=== PATIENT | female | born 1960 | race Caucasian/White ===

== ENCOUNTER 2016-06-27 17:35 | Emergency (ER) | payer OTHER ==
[2016-06-27] MEDS ORDERED: NS 0.9% 1000 ML* 1,000 ML BOLUS ONE (17:39)
[2016-06-27] MEDS ORDERED: Ondansetron INJ* 2 MG/ML VIAL IV ONE (17:39)
[2016-06-27] MEDS ORDERED: LORazepam INJ* 2 MG/ML 1 ML VIAL IV PUSH ONE ×2 (18:31→19:09)
--- NOTE | 2016-06-27 18:36 | UC ---
Dizzy HPI HPI Summary: 55 YO FEMALE BECAME TREMULOUS/DIZZY AND HAD NAUSEA AND VOMITING WHILE HERE WITH ANOTHER PATIENT HAS HAD SIMILAR SPELLS IN PAST WAS NOTED ON FLOOR VOMITING NO CP OR SOB TREMORS - History Of Current Complaint Chief Complaint: UCGeneralIllness Stated Complaint: VOMITING Time Seen by Provider: 06/27/16 17:37 Onset/Duration: Sudden Onset, Lasting Minutes Timing: Constant Severity Initially: Moderate Severity Currently: Moderate Pain Intensity: 0 Pain Scale Used: 0-10 Numeric Character: Lightheaded, Weak, Dizzy Aggravating Factor(s): Nothing Alleviating Factor(s): Lying Down Associated Signs And Symptoms: Positive: Nausea Related History: Similar Episode/Dx as - VERTIGO - Allergies/Home Medications Allergies/Adverse Reactions: Allergies Allergy/AdvReac Type Severity Reaction Status Date / Time Azithromycin [From Zithromax] AdvReac Mild Nausea Verified 06/27/16 18:12 Tramadol AdvReac Nausea And Verified 06/27/16 18:12 Vomiting Home Medications: Home Medications NK [No Home Medications Reported] 06/27/16 [History Confirmed 06/27/16] PMH/Surg Hx/FS Hx/Imm Hx Previously Healthy: Yes Endocrine History Of: Denies: Diabetes, Thyroid Disease Cardiovascular History Of: Denies: Cardiac Disorders, Hypertension, Pacemaker/ICD Respiratory History Of: Denies: COPD, Asthma GI/ History Of: Denies: Ulcer Psychological History Of: Reports: Anxiety Cancer History Of: Denies: Breast Cancer - Surgical History Surgical History: Yes Surgery Procedure, Year, and Place: HYSTERECTOMY - Family History Known Family History: Negative: Cardiac Disease, Hypertension, Diabetes - Social History Alcohol Use: Occasionally Substance Use Type: None Smoking Status (MU): Never Smoked Tobacco - Immunization History Most Recent Influenza Vaccination: 2014 Review of Systems Constitutional: Fatigue Skin: Negative Eyes: Negative ENT: Negative Respiratory: Negative Cardiovascular: Negative Gastrointestinal: Vomiting Genitourinary: Negative Motor: Weakness Neurovascular: Negative Musculoskeletal: Negative Neurological: Negative Psychological: Negative All Other Systems Reviewed And Are Negative: Yes Physical Exam Triage Information Reviewed: Yes Appearance: Well-Appearing, No Pain Distress, Well-Nourished Vital Signs: Initial Vital Signs Pulse 78 06/27/16 18:06 Resp 20 06/27/16 18:06 BP 170/94 06/27/16 18:06 Pulse Ox 100 06/27/16 18:06 Eye Exam: Normal ENT: Positive: Normal ENT inspection, Hearing grossly normal, Pharynx normal Neck exam: Normal Neck: Positive: Supple, Nontender, No Lymphadenopathy, Other: - NO BRUIT Respiratory: Positive: Lungs clear, Normal breath sounds, No respiratory distress, No accessory muscle use Cardiovascular: Positive: RRR, No Murmur, Pulses Normal Abdomen Description: Positive: Nontender, No Organomegaly, Soft Bowel Sounds: Positive: Present Musculoskeletal: Positive: ROM Intact, No Edema Neurological: Positive: Alert, Other: - NON FOCAL Psychological Exam: Normal Skin Exam: Normal Re-Evaluation - Re-Evaluation First Eval Re-Evaluation Time: 19:41 Change: Improved Comment: feels good enough to go home Dizzy Course/Dx - Differential Dx/Diagnosis Provider Diagnoses: dizziness non specific. vomiting Discharge - Discharge Plan Condition: Stable Disposition: HOME Patient Education Materials: Dizziness (ED) Referrals: Alberto Castle MD [Primary Care Provider] - 1 Day (if not better)
[2016-06-27] MEDS ORDERED: Ondansetron ODT TAB* 4 MG PO ONE (19:11)
[2016-06-27 20:10] VITALS: BP 130/71
== END 2016-06-27 20:00 | disposition home or self-care (01) ==
LOC: UCEAST 17:35
DX: R42 Dizziness and giddiness (principal); R11.10 Vomiting, unspecified; Z88.1 Allergy status to other antibiotic agents; Z88.5 Allergy status to narcotic agent
CPT/HCPCS: 96360; 96361; 96374; 96375; 96376; 99212; 99213; A9270-GY; G0463; J2060; J2405

== ENCOUNTER 2016-10-06 05:27 | Emergency (ER) | payer OTHER ==
[2016-10-06] MEDS ORDERED: Aspirin Low Dose CHEW TAB* 81 MG PO ONE (05:48)
--- NOTE | 2016-10-06 05:54 | ED ---
Marvel Boudreaux Billy, scribed for Fidel Valentin MD on 10/06/16 at 0546 . HPI Chest Pain - HPI Summary HPI Summary: Patient is a 55 year-old female coming to [facility] for evaluation of left anterior chest pain radiating to the left arm. The pain has been intermittent since earlier this week. Her episode today started at 2300 last night, but she took an aspirin and fell asleep. She then woke up at 0430 with the pain. She is unable to describe the pain very well, and is only to describe it as "a discomfort." Pain severity 5/10. Nothing makes it better or worse. - History of Current Complaint Chief Complaint: EDChestPainROMI Time Seen by Provider: 10/06/16 05:39 Hx Obtained From: Patient Onset/Duration: Started Hours Ago Timing: Intermittent Initial Severity: Moderate Current Severity: Moderate Pain Intensity: 5 Pain Scale Used: 0-10 Numeric Chest Pain Location: Left Anterior Chest Pain Radiates: Yes Chest Pain Radiates To:: Arm Aggravating Factor(s): Nothing Alleviating Factor(s): Nothing Associated Signs and Symptoms: Positive: Chest Pain - Allergy/Home Medications Allergies/Adverse Reactions: Allergies Allergy/AdvReac Type Severity Reaction Status Date / Time Azithromycin [From Zithromax] AdvReac Mild Nausea Verified 10/06/16 05:34 Tramadol AdvReac Nausea And Verified 10/06/16 05:34 Vomiting PMH/Surg Hx/FS Hx/Imm Hx Endocrine/Hematology History: Denies: Hx Diabetes, Hx Thyroid Disease Cardiovascular History: Denies: Hx Hypertension, Hx Pacemaker/ICD Respiratory History: Denies: Hx Asthma, Hx Chronic Obstructive Pulmonary Disease (COPD) GI History: Denies: Hx Ulcer Sensory History: Denies: Hx Hearing Aid Neurological History: Reports: Other Neuro Impairments/Disorders - PT HAS PREVIOUSLY INJURED LOW BACK Psychiatric History: Reports: Hx Anxiety Denies: Hx Panic Disorder - Cancer History Hx Chemotherapy: No Hx Radiation Therapy: No - Surgical History Surgery Procedure, Year, and Place: HYSTERECTOMY Infectious Disease History: No Infectious Disease History: Reports: Hx Shingles, History Other Infectious Disease - cold sores Denies: Hx Hepatitis, Hx Human Immunodeficiency Virus (HIV), Hx of Known/ Suspected MRSA, Hx Tuberculosis, Hx Known/Suspected VRE, Hx Known/Suspected VRSA , Traveled Outside the [place] in Last 30 Days - Family History Known Family History: Negative: Cardiac Disease, Hypertension, Diabetes - Social History Alcohol Use: Occasionally Hx Substance Use: No Substance Use Type: Reports: None Hx Tobacco Use: No Smoking Status (MU): Never Smoked Tobacco Review of Systems Negative: Fever Positive: Chest Pain All Other Systems Reviewed And Are Negative: Yes Physical Exam Triage Information Reviewed: Yes Vital Signs On Initial Exam: Initial Vitals Temp Pulse Resp BP Pulse Ox 98.2 F 75 14 141/73 100 10/06/16 05:31 10/06/16 05:31 10/06/16 05:31 10/06/16 05:31 10/06/16 05:31 Vital Signs Reviewed: Yes Appearance: Positive: Well-Appearing, Pain Distress - mild discomfort Skin: Positive: Warm Head/Face: Positive: Normal Head/Face Inspection Eyes: Positive: ALANA ENT: Positive: Hearing grossly normal Neck: Positive: Supple Respiratory/Lung Sounds: Positive: Clear to Auscultation, Breath Sounds Present Cardiovascular: Positive: RRR Abdomen Description: Positive: No Organomegaly Bowel Sounds: Positive: Present Musculoskeletal: Positive: Strength/ROM Intact Neurological: Positive: Sensory/Motor Intact, Alert, Oriented to Person Place, Time Psychiatric: Positive: Affect/Mood Appropriate Diagnostics - Vital Signs Vital Signs Temp Pulse Resp BP Pulse Ox 10/06/16 05:39 19 10/06/16 05:31 98.2 F 75 14 141/73 100 - Laboratory Result Diagrams: 10/06/16 05:50 10/06/16 06:20 Lab Statement: Any lab studies that have been ordered have been reviewed, and results considered in the medical decision making process. - Radiology CXR Radiology Interpretation Completed By: Radiologist - See EMR* - EKG 0536 EKG Interpretation: NSR 72 bpm, no STEMI Chest Pain Course/Dx - Diagnoses Provider Diagnoses: Chest pain Discharge - Discharge Plan Condition: Stable Disposition: HOME Discharge Disposition Comment: Patient will be signed out to Dr. Murphy pending lab results. Patient Education Materials: Chest Pain (ED) Referrals: Alberto Castle MD [Primary Care Provider] - Additional Instructions: CALL YOUR DOCTOR TOMORROW FOR FOLLOW UP. RETURN TO THE EMERGENCY DEPARTMENT FOR ANY WORSENING OF YOUR CONDITION; CHEST PAIN, SHORTNESS OF BREATH, YOU FEEL ILL OR QUESTIONS OR CONCERNS. The documentation as recorded by the Marvel patton Billy accurately reflects the service I personally performed and the decisions made by me, Fidel Valentin MD.
[2016-10-06 06:09] LABS: ALT 60 U/L (7-52); Albumin 4.3 g/dL (3.2-5.2); Alkaline Phosphatase 90 U/L (34-104); BUN/Creatinine Ratio 35.5 (8-20); Blood Urea Nitrogen 27 mg/dL (6-24); CO2 Carbon Dioxide 23 mmol/L (22-32); Calcium 9.6 mg/dL (8.6-10.3); Chloride 102 mmol/L (101-111); EGFR African American 100.9 (>60); EGFR Non-African American 78.4 (>60); Globulin 3.5 g/dL (2-4); Glucose 93 mg/dL (70-100); Sodium 133 mmol/L (133-145); Total Protein 7.8 g/dL (6.4-8.9)
[2016-10-06 06:12] LABS: Hematocrit 39 % (35-47); Hemoglobin 12.7 g/dl (12.0-16.0); Mean Corpuscular HGB Conc 33 g/dl (31-36); Mean Corpuscular Hemoglobin 27 pg (27-31); Mean Corpuscular Volume 83 fL (80-97); Mean Platelet Volume 8 um3 (7.4-10.4); Red Blood Count 4.72 10^6/ul (4.0-5.4); Red Cell Distribution Width 13 % (10.5-15); White Blood Count 5.4 10^3/ul (3.5-10.8)
--- NOTE | 2016-10-06 07:16 | RAD ---
INDICATION: Chest pain. COMPARISON: Comparison is made with a prior chest x-ray study from February 18, 2010. TECHNIQUE: Dual-energy PA and lateral views of the chest were obtained. FINDINGS: The heart is within normal limits in size. Mediastinal and hilar contours appear within normal limits. The lungs are clear. No pleural effusion is present. There is a mild dorsal scoliosis convex toward the right side. IMPRESSION: NO EVIDENCE FOR ACTIVE CARDIOPULMONARY DISEASE.
[2016-10-06] MEDS ORDERED: Al Hydrox/Mg Hydrox/Simet LIQ* 30 ML UDC PO ONE (08:52)
[2016-10-06] MEDS ORDERED: Lidocaine 2% VISCOUS* 15 ML UDC PO ONE (08:52)
[2016-10-06 10:51] VITALS: BP 128/70
--- NOTE | 2016-10-06 11:13 | ED ---
Natividad Boudreaux Janilya, scribed for Rodney Murphy MD on 10/06/16 at 0847 . Progress - Progress Note Progress Note: Pt signed out from Dr. Valentin on shift change pending 2nd and 3rd troponin levels. Pt states that she woke up at 2330 last night w/ an onset of CP. She took aspiring and went back to sleep. Pt woke up again at 0400 this morning. The pain was more intense than last night. Pt still has some pain in the chest, described as "discomfort, but not sharp pain". In addition, she reports pain and heaviness of left arm. She states she cannot move left arm. No PMHx of cardiac problems. FHx cardiac problems - parents, DM. Physical Exam Triage Information Reviewed: Yes Vital Signs On Initial Exam: Initial Vitals Temp Pulse Resp BP Pulse Ox 98.2 F 75 14 141/73 100 10/06/16 05:31 10/06/16 05:31 10/06/16 05:31 10/06/16 05:31 10/06/16 05:31 Vital Signs Reviewed: Yes Appearance: Positive: Well-Appearing, No Pain Distress Skin: Positive: Warm, Skin Color Reflects Adequate Perfusion, Dry Head/Face: Positive: Normal Head/Face Inspection Eyes: Positive: EOMI, ALANA ENT: Positive: Normal ENT inspection Neck: Positive: Supple, Nontender Respiratory/Lung Sounds: Positive: Clear to Auscultation, Breath Sounds Present Cardiovascular: Positive: RRR Abdomen Description: Positive: Nontender, Soft Bowel Sounds: Positive: Present Musculoskeletal: Positive: Normal, Strength/ROM Intact, Other - chest tenderness on palpation Neurological: Positive: Normal, Sensory/Motor Intact, Alert, Oriented to Person Place, Time Psychiatric: Positive: Affect/Mood Appropriate Re-Evaluation - Re-Evaluation First Eval Re-Evaluation Time: 10:40 Change: Improved Comment: Discussed 2nd trop levels of 0.00 Second Eval Re-Evaluation Time: 11:06 Change: Improved Comment: Discussed second EKG and D-dimer levels. Course/Dx - Course Course Of Treatment: Pt signed out from Dr. Valentin on shift change pending repeat troponin. Pt states that she woke up at 2330 last night w/ an onset of CP. She took aspiring and went back to sleep. Pt woke up again at 0400 this morning. The pain was more intense than last night. Pt still has some pain in the chest, described as "discomfort, but not sharp pain". In addition, she reports pain and heaviness of left arm. She states she could not move left arm. No PMHx of cardiac problems. FHx cardiac problems - parents, DM. 2nd troponin is at 0.00. D-dimer is <200. Second EKG is NSR at [address] no ectopy. DISCUSSED RESULTS WITH PATIENT. PATIENT REPORTS THE GI COCKTAIL HELPED WITH THE PAIN. THE LOWER STERNUM IS ALSO MILDLY TENDER TO PALPATION ON EXAM. DISCUSSED ADMISSION WITH THE PATIENT. SHE DECLINED, SHE WISHES TO GO HOME AND FOLLOW UP WITH HER DOCTOR. SHE STATED SHE WOULD RETURN TO THE EMERGENCY DEPARTMENT FOR ANY CHEST PAIN, WORSENING OF HER CONDITION OR ANY CONCERNS. DISCHARGE HOME STABLE. - Diagnoses Provider Diagnoses: Chest pain Diagnostics - Vital Signs Vital Signs Temp Pulse Resp BP Pulse Ox 10/06/16 10:30 79 21 128/70 97 10/06/16 10:00 72 19 122/73 99 10/06/16 09:30 75 23 126/73 97 10/06/16 09:00 82 21 141/75 99 10/06/16 08:30 75 23 133/69 99 10/06/16 08:04 83 19 140/75 98 10/06/16 07:30 76 16 134/72 99 10/06/16 07:00 72 16 130/63 98 10/06/16 06:30 67 12 132/85 99 10/06/16 06:20 137/87 10/06/16 06:19 64 15 99 10/06/16 05:39 19 10/06/16 05:31 98.2 F 75 14 141/73 100 - Laboratory Lab Results: Lab Results 10/06/16 10/06/16 10/06/16 Range/Units 05:45 05:50 05:50 WBC (3.5-10.8) 10^3/ul RBC (4.0-5.4) 10^6/ul Hgb (12.0-16.0) g/dl Hct (35-47) % MCV (80-97) fL MCH (27-31) pg MCHC (31-36) g/dl RDW (10.5-15) % Plt Count (150-450) 10^3/ul MPV (7.4-10.4) um3 Neut % (Auto) (38-83) % Lymph % (Auto) (25-47) % [place] % (Auto) (1-9) % Eos % (Auto) (0-6) % Baso % (Auto) (0-2) % Absolute Neuts (auto) (1.5-7.7) 10^3/ul Absolute Lymphs (auto) (1.0-4.8) 10^3/ul Absolute Monos (auto) (0-0.8) 10^3/ul Absolute Eos (auto) (0-0.6) 10^3/ul Absolute Basos (auto) (0-0.2) 10^3/ul Absolute Nucleated RBC 10^3/ul Nucleated RBC % INR (Anticoag Therapy) 0.86 L (0.89-1.11) D-Dimer, Quantitative < 200 (Less Than 230) ng/mL Sodium 133 (133-145) mmol/L Potassium TNP Chloride 102 (101-111) mmol/L Carbon Dioxide 23 (22-32) mmol/L Anion Gap TNP BUN 27 H (6-24) mg/dL Creatinine 0.76 (0.51-0.95) mg/dL Est GFR ( Amer) 100.9 (>60) Est GFR (Non-Af Amer) 78.4 (>60) BUN/Creatinine Ratio 35.5 H (8-20) Glucose 93 (70-100) mg/dL Lactic Acid 1.4 (0.5-2.0) mmol/L Calcium 9.6 (8.6-10.3) mg/dL Magnesium TNP Total Bilirubin 0.60 (0.2-1.0) mg/dL AST TNP ALT 60 H (7-52) U/L Alkaline Phosphatase 90 (34-104) U/L Troponin I 0.00 (<0.04) ng/mL Total Protein 7.8 (6.4-8.9) g/dL Albumin 4.3 (3.2-5.2) g/dL Globulin 3.5 (2-4) g/dL Albumin/Globulin Ratio 1.2 (1-3) 10/06/16 10/06/16 10/06/16 Range/Units 05:50 06:20 08:47 WBC 5.4 (3.5-10.8) 10^3/ul RBC 4.72 (4.0-5.4) 10^6/ul Hgb 12.7 (12.0-16.0) g/dl Hct 39 (35-47) % MCV 83 (80-97) fL MCH 27 (27-31) pg MCHC 33 (31-36) g/dl RDW 13 (10.5-15) % Plt Count 256 (150-450) 10^3/ul MPV 8 (7.4-10.4) um3 Neut % (Auto) 54.1 (38-83) % Lymph % (Auto) 34.5 (25-47) % [place] % (Auto) 7.2 (1-9) % Eos % (Auto) 3.9 (0-6) % Baso % (Auto) 0.3 (0-2) % Absolute Neuts (auto) 2.9 (1.5-7.7) 10^3/ul Absolute Lymphs (auto) 1.9 (1.0-4.8) 10^3/ul Absolute Monos (auto) 0.4 (0-0.8) 10^3/ul Absolute Eos (auto) 0.2 (0-0.6) 10^3/ul Absolute Basos (auto) 0 (0-0.2) 10^3/ul Absolute Nucleated RBC 0 10^3/ul Nucleated RBC % 0.1 INR (Anticoag Therapy) (0.89-1.11) D-Dimer, Quantitative (Less Than 230) ng/mL Sodium (133-145) mmol/L Potassium 3.9 Chloride (101-111) mmol/L Carbon Dioxide (22-32) mmol/L Anion Gap BUN (6-24) mg/dL Creatinine (0.51-0.95) mg/dL Est GFR ( Amer) (>60) Est GFR (Non-Af Amer) (>60) BUN/Creatinine Ratio (8-20) Glucose (70-100) mg/dL Lactic Acid (0.5-2.0) mmol/L Calcium (8.6-10.3) mg/dL Magnesium 2.0 Total Bilirubin (0.2-1.0) mg/dL AST 32 ALT (7-52) U/L Alkaline Phosphatase (34-104) U/L Troponin I 0.00 (<0.04) ng/mL Total Protein (6.4-8.9) g/dL Albumin (3.2-5.2) g/dL Globulin (2-4) g/dL Albumin/Globulin Ratio (1-3) Result Diagrams: 10/06/16 05:50 10/06/16 06:20 Lab Statement: Any lab studies that have been ordered have been reviewed, and results considered in the medical decision making process. - Radiology CXR Radiology Interpretation Completed By: Radiologist - See EMR* - EKG 0536 EKG Interpretation: NSR 72 bpm, no STEMI 1043 Cardiac Rate: NL - 67 bpm EKG Rhythm: Sinus Rhythm ST Segment: Normal Ectopy: None The documentation as recorded by the Natividad patton Janilya accurately reflects the service I personally performed and the decisions made by me, Rodney Murphy MD.
== END 2016-10-06 11:43 | disposition home or self-care (01) ==
LOC: ED 05:27
DX: R07.9 Chest pain, unspecified (principal)
CPT/HCPCS: 36415; 71020; 80053; 83605; 83735; 84484; 85025; 85379; 85610; 93005; 99283; A9270-GY

== ENCOUNTER 2017-05-12 11:23 | Emergency (ER) | payer OTHER ==
[2017-05-12 11:33] VITALS: BP 127/87
== END 2017-05-12 12:26 | disposition left against medical advice (07) ==
LOC: ED 11:23
DX: R11.10 Vomiting, unspecified (principal); Z53.21 Procedure and treatment not carried out due to patient leaving prior to being seen by health care provider
CPT/HCPCS: 99282

== ENCOUNTER 2017-05-12 17:52 | Emergency (ER) | payer OTHER ==
[2017-05-12] MEDS ORDERED: NS 0.9% 1000 ML* 1,000 ML IV ONE ×2 (19:19→20:49)
[2017-05-12] MEDS ORDERED: Ondansetron INJ* 2 MG/ML VIAL IV ONE ×2 (19:20→20:50)
[2017-05-12 21:56] VITALS: BP 110/58
[2017-05-12] MEDS ORDERED: Ondansetron ODT TAB* 4 MG PO ONE (22:06)
--- NOTE | 2017-05-12 22:10 | UC ---
Jamey Boudreaux Nilda, scribed for Rodney Murphy MD on 05/12/17 at 1921 . Abdominal Pain Female HPI - HPI Summary HPI Summary: This patient is a 56 year old F presenting to [facility] [place] with a chief complaint of constant nausea since waking up this morning. Symptoms aggravated by food intake. 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 Patient reports intermittent sharp diffuse abd pain (8/10 in severity initially ; no pain currently), chills (resolved), body aches, vomiting, diarrhea, and bilat LE weakness. Patient denies fever, sore throat, and ear pain. Pt notes she 's prone to nausea. She states she has Hx of vertigo and notes her symptoms do not feel like they're from vertigo. PSHx partial hysterectomy. - History of Current Complaint Chief Complaint: UCGeneralIllness Stated Complaint: VOMITING Time Seen by Provider: 05/12/17 19:10 Hx Obtained From: Patient Onset/Duration: Sudden Onset, Lasting Hours, Still Present Timing: Constant Severity Initially: Severe Severity Currently: None Pain Intensity: 8 Pain Scale Used: 0-10 Numeric Location: Diffuse Radiates: No Character: Sharp Aggravating Factor(s): Food Alleviating Factor(s): Nothing Associated Signs and Symptoms: Positive: Other: - nausea, intermittent sharp diffuse abd pain (8/10 in severity initially; no pain currently), chills ( resolved), body aches, vomiting, diarrhea, and bilat LE weakness. Patient denies fever, sore throat, and ear pain. Allergies/Adverse Reactions: Allergies Allergy/AdvReac Type Severity Reaction Status Date / Time Azithromycin [From Zithromax] AdvReac Mild Nausea Verified 05/12/17 18:21 Tramadol AdvReac Nausea And Verified 05/12/17 18:21 Vomiting PMH/Surg Hx/FS Hx/Imm Hx Previously Healthy: No Cardiovascular History: Hypertension Psychological History: Anxiety - Surgical History Surgical History: Yes Surgery Procedure, Year, and Place: HYSTERECTOMY - Family History Known Family History: Negative: Cardiac Disease, Hypertension, Diabetes - Social History Alcohol Use: Occasionally Substance Use Type: None Smoking Status (MU): Never Smoked Tobacco - Immunization History Most Recent Influenza Vaccination: 2014 Review of Systems Constitutional: Chills - resolved, Other - negative fever ENT: Other - negative ear pain, sore throat Gastrointestinal: Abdominal Pain, Vomiting, Diarrhea, Nausea Musculoskeletal: Other: - body aches, LE weakness All Other Systems Reviewed And Are Negative: Yes Physical Exam Triage Information Reviewed: Yes Vital Signs: Initial Vital Signs Temp 98 F 05/12/17 18:21 Pulse 95 05/12/17 18:21 Resp 18 05/12/17 18:21 BP 131/71 05/12/17 18:21 Pulse Ox 100 05/12/17 18:21 Vital Signs Reviewed: Yes - Additional Comments General: well-appearing, no pain distress Skin: warm, color reflects adequate perfusion, dry Head: normal Eyes: EOMI, ALANA ENT: Dry oral mucosa Neck: supple, nontender Respiratory: CTA, breath sounds present Cardiovascular: RRR Abdomen: soft, nontender Bowel sounds: hypoactive Musculoskeletal: normal, strength/ROM intact Neurological: normal, sensory/motor intact, A&O x3 Psychological: affect/mood appropriate Abd Pain Female Course/Dx - Course Course Of Treatment: BP noted and advised to follow up with PCP. Allergies noted. Medications reviewed. IMPROVED IN CLINIC AFTER IVF AND ZOFRAN. DISCUSSED IF SHE WORSENS TO GO TO THE ED. - Differential Dx/Diagnosis Provider Diagnoses: NAUSEA, VOMITING, DIARRHEA AND DEHYDRATION. uncontrolled hypertension Discharge - Discharge Plan Condition: Stable Disposition: HOME Patient Education Materials: Dehydration (ED), Acute Nausea and Vomiting (ED), Acute Diarrhea (ED) Referrals: Alberto Castle MD [Primary Care Provider] - Additional Instructions: FOLLOW UP WITH YOUR DOCTOR. GO TO THE EMERGENCY DEPARTMENT FOR ANY WORSENING OF YOUR CONDITION; ABDOMINAL PAIN, DEHYDRATION, YOU FEEL ILL, YOU FEEL LIKE PASSING OUT OR QUESTIONS OR CONCERNS. Your blood pressure was elevated during todays visit; please follow up with your primary care provider within a week for further evaluation. The documentation as recorded by the Jamey patton Nilda accurately reflects the service I personally performed and the decisions made by me, Rodney Murphy MD.
== END 2017-05-12 22:24 | disposition home or self-care (01) ==
LOC: UCEAST 17:52
DX: R11.2 Nausea with vomiting, unspecified (principal); R19.7 Diarrhea, unspecified; E86.0 Dehydration; I10 Essential (primary) hypertension
CPT/HCPCS: 81003; 87086; 87502; 96360; 96361; 96374; 96376; 99213; A9270-GY; G0463; J2405

== ENCOUNTER 2017-06-07 17:17 | Emergency (ER) | payer OTHER ==
[2017-06-07 17:51] VITALS: BP 145/75
[2017-06-07] MEDS ORDERED: Ibuprofen TAB* 600 MG PO ONE (18:16)
--- NOTE | 2017-06-07 19:29 | UC ---
Jamey Boudreaux Nilda, scribed for Rodney Murphy MD on 06/07/17 at 1822 . Throat Pain/Nasal Zeferino HPI - HPI Summary HPI Summary: This patient is a 56 year old F presenting to [facility] [place] with a chief complaint of constant sore throat since 0200 this morning. The patient rates the pain 6/10 in severity. 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 Patient reports swollen tonsils, difficulty swallowing, chills, fatigue, body aches (this morning but resolved), and left ear pain. Patient denies fever. 2-3 weeks ago, grandson had strep throat. Pt denies daily medications. - History of Current Complaint Chief Complaint: UCRespiratory Stated Complaint: SORE THROAT, HEADACHE Time Seen by Provider: 06/07/17 18:10 Hx Obtained From: Patient Onset/Duration: Sudden Onset, Lasting Hours, Still Present Severity: Moderate Pain Intensity: 6 Pain Scale Used: 0-10 Numeric Associated Signs & Symptoms: Positive: Other - difficulty swallowing, swollen tonsils, difficulty swallowing, chills, fatigue, body aches (this morning but resolved), and left ear pain. Patient denies fever. - Allergies/Home Medications Allergies/Adverse Reactions: Allergies Allergy/AdvReac Type Severity Reaction Status Date / Time Azithromycin [From Zithromax] AdvReac Mild Nausea Verified 06/07/17 17:51 Tramadol AdvReac Nausea And Verified 06/07/17 17:51 Vomiting PMH/Surg Hx/FS Hx/Imm Hx Cardiovascular History: Hypertension - Surgical History Surgical History: Yes Surgery Procedure, Year, and Place: HYSTERECTOMY - Family History Known Family History: Negative: Cardiac Disease, Hypertension, Diabetes - Social History Alcohol Use: Occasionally Substance Use Type: None Smoking Status (MU): Never Smoked Tobacco - Immunization History Most Recent Influenza Vaccination: 2017 Review of Systems Constitutional: Chills, Fatigue, Other - negative fever ENT: Sore Throat, Ear Ache - left, Other - swollen tonsils, difficulty swallowing Musculoskeletal: Other: - body aches (this morning, now resolved) All Other Systems Reviewed And Are Negative: Yes Physical Exam Triage Information Reviewed: Yes Vital Signs: Initial Vital Signs Temp 98.5 F 06/07/17 17:47 Pulse 82 06/07/17 17:47 Resp 14 06/07/17 17:47 BP 145/75 06/07/17 17:47 Pulse Ox 98 06/07/17 17:47 Vital Signs Reviewed: Yes - Additional Comments General: mildly ill-appearing, no pain distress Skin: warm, color reflects adequate perfusion, dry Head: normal Eyes: EOMI, ALANA ENT: normal TMs, Posterior pharynx erythematous Neck: supple, nontender, + anterior cervical adenopathy Respiratory: CTA, breath sounds present Cardiovascular: RRR Abdomen: soft, nontender Bowel: present Musculoskeletal: normal, strength/ROM intact Neurological: normal, Psychological: affect/mood appropriate Throat Pain/Nasal Course/Dx - Course Assessment/Plan: Allergies noted. Medications reviewed. BP noted and advised to follow up with PCP. - Differential Dx/Diagnosis Provider Diagnoses: PHARYNGITIS. uncontrolled hypertension Discharge - Discharge Plan Condition: Stable Disposition: HOME Patient Education Materials: Pharyngitis (ED) Referrals: Alberto Castle MD [Primary Care Provider] - Additional Instructions: FOLLOW UP WITH YOUR DOCTOR. GET RECHECKED FOR ANY WORSENING OF YOUR CONDITION OR QUESTIONS OR CONCERNS. Your blood pressure was elevated during todays visit; please follow up with your primary care provider within a week for further evaluation. The documentation as recorded by the Jamey patton Nilda accurately reflects the service I personally performed and the decisions made by me, Rodney Murphy MD.
== END 2017-06-07 19:00 | disposition home or self-care (01) ==
LOC: UCEAST 17:17
DX: J02.9 Acute pharyngitis, unspecified (principal); I10 Essential (primary) hypertension; R51 Headache; Z88.1 Allergy status to other antibiotic agents; Z88.5 Allergy status to narcotic agent
CPT/HCPCS: 87651; 99211; A9270-GY; G0463

== ENCOUNTER 2019-02-20 07:02 | Emergency (ER) | payer OTHER ==
[2019-02-20 07:19] VITALS: BP 132/72
--- NOTE | 2019-02-20 07:40 | UC ---
Complaint Female HPI - HPI Summary HPI Summary: Patient is a 58-year-old female here with constipation. Patient's had 2 weeks of symptoms. Patient initially had suprapubic pain and lower back pain. Patient saw her urologist to be valid for UTI with a negative urine. Patient's had constipation over the past 2 weeks that is progressively worse. Patient's last bowel movement was 2 days ago. Patient doing MiraLAX once a day for that. Patient never had surgery at site of a partial hysterectomy but has no abdominal wall scars. Patient is able to pass gas. Patient has no fever, chills, nausea, vomiting, dysuria, hematuria, vaginal bleeding, vaginal discharge, weight loss. Patient's last colonoscopy was 5 years ago. Patient's father of colon cancer. Medications reviewed - History Of Current Complaint Chief Complaint: UCAbdominalPain Stated Complaint: CONSTIPATION Time Seen by Provider: 02/20/19 07:10 Pain Intensity: 6 - Allergies/Home Medications Allergies/Adverse Reactions: Allergies Allergy/AdvReac Type Severity Reaction Status Date / Time azithromycin AdvReac Mild Nausea Verified 02/20/19 07:19 tramadol AdvReac Nausea Verified 02/20/19 07:19 Home Medications: Home Medications Polyethylene Glycol 3350* [Miralax*] 17 gm PO DAILY 02/20/19 [History Confirmed 02/20/19] PMH/Surg Hx/FS Hx/Imm Hx Previously Healthy: Yes - Surgical History Surgical History: Yes Surgery Procedure, Year, and Place: HYSTERECTOMY - partial - Family History Known Family History: Negative: Cardiac Disease, Hypertension, Diabetes - Social History Alcohol Use: Weekly Substance Use Type: None Smoking Status (MU): Never Smoked Tobacco - Immunization History Most Recent Influenza Vaccination: 2017 Review of Systems All Other Systems Reviewed And Are Negative: Yes Constitutional: Positive: Chills. Negative: Fever ENT: Negative: Sore Throat, Nasal Discharge Respiratory: Negative: Shortness Of Breath, Cough Cardiovascular: Negative: Chest Pain Gastrointestinal: Negative: Vomiting, Diarrhea Genitourinary: Negative: Dysuria, Hematuria, Frequency Physical Exam - Summary Physical Exam Summary: Vital Signs Reviewed: Yes A+Ox3, no distress Eyes: Conjunctiva Clear, PERRL. EOM intact and full ENT: Hearing grossly normal TM x 2 clear, moist, uvula midline, no exudate, no erythema Neck: Positive: Supple Respiratory: Positive: No respiratory distress, No accessory muscle use + CTA throughout no w/r Cardiovascular: RRR nl s1, s2 no m/r CBT <2 sec abd soft + BS. Tenderness over the suprapubic region. no guarding, no distension Musculoskeletal Exam: STROUD x 4 without difficulty Strength Intact, ROM Intact Neurological: Positive: Alert, + sensation throughout Psychological: Positive: Normal Response To Family Skin: no rash, no ecchymosis Vital Signs: Initial Vital Signs Temp 98.8 F 02/20/19 07:13 Pulse 71 02/20/19 07:13 Resp 16 02/20/19 07:13 BP 132/72 02/20/19 07:13 Pulse Ox 99 02/20/19 07:13 Complaint Female Dx - Course Course Of Treatment: Patient is here with constipation that has progressively gotten worse. Patient had a negative UA here for hematuria or evidence of infection. Patient had an overall benign exam. Patient had her MiraLAX increased to twice a day and was educated on home enemas. Patient was given GI follow-up. Patient did not need any emergent imaging per my clinical evaluation but does need to be followed up to make sure patient does not have colon cancer or any underlying pathology causing her constipation. - Differential Dx/Diagnosis Provider Diagnosis: Constipation, Suprapubic pain, Low back pain Discharge ED - Sign-Out/Discharge Documenting (check all that apply): Patient Departure All imaging exams completed and their final reports reviewed: No Studies - Discharge Plan Condition: Stable Disposition: HOME Patient Education Materials: Constipation (ED) Referrals: Alberto Castle MD [Primary Care Provider] - Efren Cazares MD [Medical Doctor] - Additional Instructions: Please start using her MiraLAX twice a day Please go to the grocery store and buy a home enema kit Please go to the emergency department if her symptoms are worsening You need to follow-up for colonoscopy as you might have colon cancer - Billing Disposition and Condition Condition: STABLE Disposition: Home
== END 2019-02-20 08:00 | disposition home or self-care (01) ==
LOC: UCEAST 07:02
DX: K59.00 Constipation, unspecified (principal); R10.30 Lower abdominal pain, unspecified; M54.5 Low back pain; Z90.711 Acquired absence of uterus with remaining cervical stump; Z88.1 Allergy status to other antibiotic agents; Z88.5 Allergy status to narcotic agent
CPT/HCPCS: 81003; 99211; G0463

== ENCOUNTER 2019-09-08 07:54 | Emergency (ER) | payer OTHER ==
[2019-09-08] MEDS ORDERED: NS 0.9% 1000 ML** 1,000 ML IV ONE (08:03)
[2019-09-08] MEDS ORDERED: Lorazepam PYXIS KEY PRN (08:03)
[2019-09-08] MEDS ORDERED: LORazepam INJ* 2 MG/ML 1 ML VIAL IV PUSH ONE (08:03)
[2019-09-08] MEDS ORDERED: Lorazepam PYXIS KEY ONE (08:08)
[2019-09-08] MEDS ORDERED: Meclizine TAB* 12.5 MG PO ONE (08:22)
[2019-09-08 08:49] LABS: ABS Basophils 0.1 10^3/ul (0-0.2); ABS Lymphocytes 0.9 10^3/ul (1.0-4.8); ABS Monocytes 0.3 10^3/ul (0-0.8); Eosinophil % 0.2 %; Hematocrit 36 % (35-47); Lymphocyte % 12.4 %; Mean Corpuscular HGB Conc 33 g/dL (31-36); Mean Corpuscular Hemoglobin 27 pg (27-31); Mean Corpuscular Volume 83 fL (80-97); Mean Platelet Volume 8.1 fL (7.4-10.4); Platelet Count 268 10^3/uL (150-450); Red Blood Count 4.38 10^6 /uL (3.70-4.87); Red Cell Distribution Width 13 % (10-15); White Blood Count 7.3 10^3/uL (3.5-10.8)
[2019-09-08 08:55] LABS: INR 0.96 (0.82-1.09)
[2019-09-08 09:07] LABS: Albumin 3.9 g/dL (3.2-5.2); Albumin/Globulin Ratio 1.4 (1-3); BUN/Creatinine Ratio 28.8 (8-20); Calcium 8.9 mg/dL (8.6-10.3); EGFR African American 98.4 (>60); EGFR Non-African American 81.3 (>60); Globulin 2.8 g/dL (2-4); Potassium 3.8 mmol/L (3.5-5.0); Total Bilirubin 0.4 mg/dL (0.2-1.0); Total Protein 6.7 g/dL (6.4-8.9)
--- NOTE | 2019-09-08 09:56 | ED ---
Dizziness - HPI Summary HPI Summary: Pt is-year-old female who is otherwise healthy presenting to the ED with acute onset dizziness, nausea and vomiting and occipital headache. She states she has had this in the past and she typically does have a headache when she has her vertigo. Her vertigo is always associated with nausea and vomiting. She did take antiemetic at home which did not improve her symptoms. She denies any visual changes. Denies abd pain. No recent history of cough, congestion, fevers, sweats, chills. Patient denies any known sick contacts or recent travel. No change in any medications. No neurologic changes otherwise. - History Of Current Complaint Chief Complaint: EDDizziness Stated Complaint: DIZZY Time Seen by Provider: 09/08/19 07:55 Hx Obtained From: Patient Onset/Duration: Suddenly Timing: Constant Severity Initially: Mild Severity Currently: Mild Aggravating Factor(s): Nothing Alleviating Factor(s): Nothing Associated Signs And Symptoms: Positive: Nausea, Vomiting. Negative: Diarrhea, Diaphoresis, Visual Changes - Risk Factors Cardiac Risk Factors: Negative CVA Risk Factor: Negative - Allergies/Home Medications Allergies/Adverse Reactions: Allergies Allergy/AdvReac Type Severity Reaction Status Date / Time cefuroxime [From Ceftin] Allergy Unknown Verified 06/10/19 14:37 Reaction Details doxycycline Allergy Unknown Verified 06/10/19 14:37 Reaction Details levofloxacin [From Levaquin] Allergy Unknown Verified 06/10/19 14:37 Reaction Details azithromycin AdvReac Mild Nausea Verified 03/29/19 10:17 tramadol AdvReac Nausea Verified 03/29/19 10:17 Home Medications: Home Medications Meclizine TAB* [Antivert 12.5 TAB*] 25 mg PO TID PRN #20 tab MDD 3 09/08/19 [Rx] PMH/Surg Hx/FS Hx/Imm Hx Previously Healthy: Yes Endocrine/Hematology History: Denies: Hx Diabetes, Hx Thyroid Disease Cardiovascular History: Denies: Hx Hypertension, Hx Pacemaker/ICD Respiratory History: Denies: Hx Asthma, Hx Chronic Obstructive Pulmonary Disease (COPD) GI History: Denies: Hx Ulcer History: Denies: Hx Renal Disease Sensory History: Denies: Hx Hearing Aid Neurological History: Reports: Other Neuro Impairments/Disorders - PT HAS PREVIOUSLY INJURED LOW BACK Psychiatric History: Reports: Hx Anxiety Denies: Hx Panic Disorder - Cancer History Hx Chemotherapy: No Hx Radiation Therapy: No - Surgical History Surgery Procedure, Year, and Place: HYSTERECTOMY - partial - Immunization History Hx Pertussis Vaccination: No Immunizations Up to Date: Yes Infectious Disease History: No Infectious Disease History: Reports: Hx Shingles, History Other Infectious Disease - cold sores Denies: Hx Hepatitis, Hx Human Immunodeficiency Virus (HIV), Hx of Known/ Suspected MRSA, Hx Tuberculosis, Hx Known/Suspected VRE, Hx Known/Suspected VRSA , Traveled Outside the [place] in Last 30 Days - Family History Known Family History: Negative: Cardiac Disease, Hypertension, Diabetes - Social History Occupation: Employed Full-time Lives: With Family Alcohol Use: None Hx Substance Use: No Substance Use Type: Reports: None Hx Tobacco Use: No Smoking Status (MU): Never Smoked Tobacco Review of Systems Negative: Fever, Chills, Fatigue, Skin Diaphoresis Negative: Palpitations, Chest Pain Negative: Shortness Of Breath, Cough Positive: Vomiting, Nausea Genitourinary: Negative Positive: no symptoms reported, see HPI Negative: Arthralgia, Myalgia Neurological/Mental Status: Other - dizzy All Other Systems Reviewed And Are Negative: Yes Physical Exam Triage Information Reviewed: Yes Vital Signs On Initial Exam: Initial Vitals Temp Pulse Resp BP Pulse Ox 96.8 F 103 20 122/50 99 09/08/19 07:56 09/08/19 07:56 09/08/19 07:56 09/08/19 07:56 09/08/19 07:56 Vital Signs Reviewed: Yes Appearance: Positive: Ill-Appearing Skin: Positive: Warm, Skin Color Reflects Adequate Perfusion Head/Face: Positive: Normal Head/Face Inspection Eyes: Positive: EOMI, ALANA, Conjunctiva Clear Neck: Positive: Supple, No Lymphadenopathy Respiratory/Lung Sounds: Positive: Clear to Auscultation, Breath Sounds Present Cardiovascular: Positive: RRR, Pulses are Symmetrical in both Upper and Lower Extremities Musculoskeletal: Positive: Normal, Strength/ROM Intact Neurological: Positive: Speech Normal Psychiatric: Positive: Normal, Affect/Mood Appropriate Procedures - Sedation Patient Received Moderate/Deep Sedation with Procedure: No Diagnostics - Vital Signs Vital Signs Temp Pulse Resp BP Pulse Ox 09/08/19 09:00 89 13 94 09/08/19 08:59 91 15 137/73 97 09/08/19 08:29 92 25 152/88 96 09/08/19 08:27 84 100 09/08/19 08:17 17 09/08/19 07:56 96.8 F 103 20 122/50 99 - Laboratory Lab Results: Lab Results 09/08/19 09/08/19 09/08/19 Range/Units 08:35 08:35 08:35 WBC 7.3 (3.5-10.8) 10^3/uL RBC 4.38 (3.70-4.87) 10^6 /uL Hgb 12.0 (12.0-16.0) g/dL Hct 36 (35-47) % MCV 83 (80-97) fL MCH 27 (27-31) pg MCHC 33 (31-36) g/dL RDW 13 (10-15) % Plt Count 268 (150-450) 10^3/uL MPV 8.1 (7.4-10.4) fL Neut % (Auto) 82.9 % Lymph % (Auto) 12.4 % [place] % (Auto) 3.8 % Eos % (Auto) 0.2 % Baso % (Auto) 0.7 % Absolute Neuts (auto) 6.0 (1.5-7.7) 10^3/ul Absolute Lymphs (auto) 0.9 L (1.0-4.8) 10^3/ul Absolute Monos (auto) 0.3 (0-0.8) 10^3/ul Absolute Eos (auto) 0.0 (0-0.6) 10^3/ul Absolute Basos (auto) 0.1 (0-0.2) 10^3/ul Absolute Nucleated RBC 0.0 10^3/ul Nucleated RBC % 0.0 INR (Anticoag Therapy) 0.96 (0.82-1.09) Sodium 138 (135-145) mmol/L Potassium 3.8 (3.5-5.0) mmol/L Chloride 105 (101-111) mmol/L Carbon Dioxide 24 (22-32) mmol/L Anion Gap 9 (2-11) mmol/L BUN 21 (6-24) mg/dL Creatinine 0.73 (0.51-0.95) mg/dL Est GFR ( Amer) 98.4 (>60) Est GFR (Non-Af Amer) 81.3 (>60) BUN/Creatinine Ratio 28.8 H (8-20) Glucose 121 H (70-100) mg/dL Lactic Acid (0.5-2.0) mmol/L Calcium 8.9 (8.6-10.3) mg/dL Total Bilirubin 0.40 (0.2-1.0) mg/dL AST 28 (13-39) U/L ALT 57 H (7-52) U/L Alkaline Phosphatase 88 (34-104) U/L Troponin I 0.00 (<0.03) ng/mL Total Protein 6.7 (6.4-8.9) g/dL Albumin 3.9 (3.2-5.2) g/dL Globulin 2.8 (2-4) g/dL Albumin/Globulin Ratio 1.4 (1-3) 09/08/19 Range/Units 08:35 WBC (3.5-10.8) 10^3/uL RBC (3.70-4.87) 10^6 /uL Hgb (12.0-16.0) g/dL Hct (35-47) % MCV (80-97) fL MCH (27-31) pg MCHC (31-36) g/dL RDW (10-15) % Plt Count (150-450) 10^3/uL MPV (7.4-10.4) fL Neut % (Auto) % Lymph % (Auto) % [place] % (Auto) % Eos % (Auto) % Baso % (Auto) % Absolute Neuts (auto) (1.5-7.7) 10^3/ul Absolute Lymphs (auto) (1.0-4.8) 10^3/ul Absolute Monos (auto) (0-0.8) 10^3/ul Absolute Eos (auto) (0-0.6) 10^3/ul Absolute Basos (auto) (0-0.2) 10^3/ul Absolute Nucleated RBC 10^3/ul Nucleated RBC % INR (Anticoag Therapy) (0.82-1.09) Sodium (135-145) mmol/L Potassium (3.5-5.0) mmol/L Chloride (101-111) mmol/L Carbon Dioxide (22-32) mmol/L Anion Gap (2-11) mmol/L BUN (6-24) mg/dL Creatinine (0.51-0.95) mg/dL Est GFR ( Amer) (>60) Est GFR (Non-Af Amer) (>60) BUN/Creatinine Ratio (8-20) Glucose (70-100) mg/dL Lactic Acid 2.6 H* (0.5-2.0) mmol/L Calcium (8.6-10.3) mg/dL Total Bilirubin (0.2-1.0) mg/dL AST (13-39) U/L ALT (7-52) U/L Alkaline Phosphatase (34-104) U/L Troponin I (<0.03) ng/mL Total Protein (6.4-8.9) g/dL Albumin (3.2-5.2) g/dL Globulin (2-4) g/dL Albumin/Globulin Ratio (1-3) Result Diagrams: 09/08/19 08:35 09/08/19 08:35 Lab Statement: Any lab studies that have been ordered have been reviewed, and results considered in the medical decision making process. Dizzy Course/Dx - Course Course Of Treatment: During this patients course of treatment, pt is evaluated for acute onset of vertigo associated with nausea and vomiting as well as headache. On arrival into the ED, the patient appears ill, curled up and appears in distress. She is A and O x3. RENTERIA rated 6/10. Dizziness rated 10/ 10. Denies other sxs. Labs WNL. Patient was given ativan 1mg and meclizine 25mg. NS Patient feels improved. - Diagnoses Provider Diagnoses: Vertigo, Nausea and vomiting - Critical Care Time Critical Care Statement: Critical care time is provided exclusive of any time spent performing procedures. Discharge ED - Sign-Out/Discharge Documenting (check all that apply): Patient Departure - Discharge Plan Condition: Stable Disposition: HOME Prescriptions: Meclizine TAB* [Antivert 12.5 TAB*] 25 mg PO TID PRN #20 tab MDD 3 PRN Reason: Dizziness Patient Education Materials: Vertigo (ED) Referrals: Alberto Castle MD [Primary Care Provider] - Additional Instructions: If you develop recurrent symptoms, please use meclizine (2 tabs) and zofran to attempt to control symptoms. If you are unable to control your symptoms at home - please return to the ED - Billing Disposition and Condition Condition: STABLE Disposition: Home - Attestation Statements Provider Attestation: I was available for consult. This patient was seen by the RONNI. The patient was not presented to, seen by, or examined by me. Montana Arce MD
[2019-09-08 13:50] VITALS: BP 121/76
== END 2019-09-08 12:05 | disposition home or self-care (01) ==
LOC: ED 07:54
DX: R42 Dizziness and giddiness (principal); R11.2 Nausea with vomiting, unspecified; R51 Headache; Z88.8 Allergy status to other drugs, medicaments and biological substances; Z79.899 Other long term (current) drug therapy
CPT/HCPCS: 36415; 80053; 83605; 84484; 85025; 85610; 93005; 96361; 96374; 99283; A9270-GY; J2060